=== PATIENT | male | born 1935 | race Caucasian/White ===

== ENCOUNTER 2019-01-16 20:46 | Emergency (ER) | payer OTHER ==
[~2019-01-16] VITALS: Ht 157.5 cm; Wt 56.1 kg
[2019-01-16 22:21] VITALS: Ht 157.5 cm; Wt 56.1 kg
--- NOTE | 2019-01-17 00:23 | ERD ---
ER Documentation Chief Complaint Chief Complaint RIGHT EYE REDNESS, LOWER EYELID DROOP X 6 MOS. 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 The patient denies blurred vision, no headache, no ocular discharge. ROS All systems reviewed and are negative except as per history of present illness. Medications Home Meds Active Scripts Acetaminophen* (Tylenol*) 325 Mg Tablet, 2 TAB PO Q6 PRN for PAIN AND OR ELEVATED TEMP, #20 TAB Prov:MELISSA WASHBURN MD 01/17/19 Allergies Allergies: Coded Allergies: No Known Allergy (Unverified , 01/16/19) PMhx/Soc Medical and Surgical Hx: pt denies Surgical Hx Hx Neurological Disorder: No Hx Respiratory Disorders: No Hx Cardiac Disorders: Yes (HTN ) Hx Psychiatric Problems: No Hx Miscellaneous Medical Probl: No Hx Alcohol Use: No Hx Substance Use: No Hx Tobacco Use: No Physical Exam Vitals Vital Signs Date Temp Pulse Resp B/P (MAP) Pulse Ox O2 O2 Flow FiO2 Time Delivery Rate 01/17/19 98.8 87 19 138/61 97 Room Air 01:10 (86) 01/16/19 98.1 83 18 152/81 95 22:21 (104) Physical Exam Const: No acute distress Head: Atraumatic Eyes: Right eye with everted eyelid with thickening of the lower conjunctiva. ENT: Normal External Ears, Nose and Mouth. Neck: Full range of motion. No meningismus. Resp: Clear to auscultation bilaterally Cardio: Regular rate and rhythm, no murmurs Abd: Soft, non tender, non distended. Normal bowel sounds Skin: No petechiae or rashes Back: No midline or flank tenderness Ext: No cyanosis, or edema Neur: Awake and alert Psych: Normal Mood and Affect Procedures/MDM Differential diagnosis include but not limited to: infection bacte rial/viral/fungal, iritis, scleritis, corneal abrasion, allergies, foreign body, glaucoma. Physical examination and clinical presentation consistent most likely with skin neoplasm of the right lower eyelid. During the ED course the patient remained stable, no new complaints. Clinical impression discussed with patient who agrees with management. The patient is stable to be treated outpatient and will be discharged home. The patient was instructed to follow up with the primary care provider in the next 48h. If symptoms persist, worsen or new symptoms develop, then patient should return to the ED immediately. Disclaimer: Inadvertent spelling and grammatical errors are likely due to EHR/dictation software use and do not reflect on the overall quality of patient care. Also, please note that the electronic time recorded on this note does not necessarily reflect the actual time of the patient encounter. Departure Diagnosis: Primary Impression: Neoplasm of uncertain behavior of skin of eyelid Condition: Stable Additional Instructions: Thank you very much for allowing us to participate in your care. Your health and safety is our top priority at [facility]. The evaluation in the emergency department has been done to rule out an acute emergency. Chronic, [id number] conditions may have not been evaluated; therefore, you need to follow up with a primary care provider in the next 48h. If symptoms persist, worsen or new symptoms develop, then patient should return to the ED immediately. Call your primary care doctor TOMORROW for an appointment during the next 2-4 days and bring all the information provided. Have prescriptions filled and follow precisely the directions on the label. If the symptoms get worse and your provider is unavailable, return to the Em ergency Department immediately. MELISSA WASHBURN MD Jan 17, 2019 00:23
[2019-01-17] MEDS ORDERED: ACET325T33 PO (00:24)
[2019-01-17 01:10] VITALS: BP 138/61; PULSE 87; RESP 19
== END 2019-01-17 01:12 | disposition home or self-care (01) ==
LOC: FTE 20:46
DX: D48.7 Neoplasm of uncertain behavior of other specified sites (principal); I10 Essential (primary) hypertension
CPT/HCPCS: 99282

== ENCOUNTER 2019-01-21 09:27 | Emergency (ER) | payer OTHER ==
[~2019-01-21] VITALS: Ht 149.9 cm; Wt 54.0 kg
[~2019-01-21 09:27] MED LIST: ACET325T33 PO
[2019-01-21 09:33] VITALS: Ht 149.9 cm; Wt 54.0 kg
[2019-01-21] MEDS ORDERED: LISI40TA3 PO (12:07)
[2019-01-21] MEDS ORDERED: HYDR25TA6 PO (12:07)
[2019-01-21 12:27] VITALS: BP 116/77; PULSE 70; RESP 17
--- NOTE | 2019-01-21 12:28 | ERD ---
ER Documentation Chief Complaint Chief Complaint LLQ ABD PAIN W/ VAGUE ONSET HPI This is an 83-year-old male who presents for evaluation of left lower quadrant pain, which is intermittent. Symptoms are somewhat associated with food, and radiate to the upper quadrant. He has not had a fever. No nausea or vomiting, no chest pain or shortness of breath. Additionally his daughter is at the bedside, and requested a CT brain could be performed, as the patient saw an closer on and was told that he could have a brain tumor and to get an outpatient CT or MRI. The patient has not had any neurologic deficits, no confusion, no slurred speech, no syncope. ROS All systems reviewed and are negative except as per history of present illness. Medications Home Meds Reported Medications Lisinopril* (Lisinopril*) 40 Mg Tablet, 40 MG PO DAILY, #30 TAB 01/21/19 Hydrochlorothiazide* (Hydrochlorothiazide*) 25 Mg Tab, 25 MG PO DAILY, #30 TAB 01/21/19 Discontinued Scripts Acetaminophen* (Tylenol*) 325 Mg Tablet, 2 TAB PO Q6 PRN for PAIN AND OR ELEVATED TEMP, #20 TAB Prov:MELISSA WASHBURN MD 01/17/19 Allergies Allergies: Coded Allergies: No Known Allergy (Unverified , 01/21/19) PMhx/Soc History of Surgery: Yes (PROSTATE,HERNIA) Anesthesia Reaction: No Hx Neurological Disorder: No Hx Respiratory Disorders: No Hx Cardiac Disorders: Yes (HTN ) Hx Psychiatric Problems: No Hx Miscellaneous Medical Probl: No Hx Alcohol Use: No Hx Substance Use: No Hx Tobacco Use: No Smoking Status: Never smoker Physical Exam Vitals Vital Signs Date Temp Pulse Resp B/P (MAP) Pulse Ox O2 O2 Flow FiO2 Time Delivery Rate 01/21/19 98.6 95 16 129/77 97 09:33 (94) Physical Exam Const: Pleasant, well-developed well-nourished, nontoxic appearing, smiling Head: Atraumatic Eyes: Normal Conjunctiva ENT: Normal External Ears, Nose and Mouth. Neck: Full range of motion. No meningismus. Resp: Clear to auscultation bilaterally Cardio: Regular rate and rhythm, no murmurs Abd: Soft, non tender, non distended, no rebound or guarding. Normal bowel sounds Skin: No petechiae or rashes Back: No midline or flank tenderness Ext: No cyanosis, or edema Neur: Awake and alert. Strength 5 out of 5 in all extremities, no cerebellar ataxia Psych: Normal Mood and Affect Result Diagram: 01/21/19 1013 01/21/19 1013 Results 24 hrs Laboratory Tests Test 01/21/19 10:13 White Blood Count 4.6 10^3/ul Red Blood Count 4.74 10^6/ul Hemoglobin 14.2 g/dl Hematocrit 42.8 % Mean Corpuscular Volume 90.3 fl Mean Corpuscular Hemoglobin 30.0 pg Mean Corpuscular Hemoglobin Concent 33.2 g/dl Red Cell Distribution Width 13.3 % Platelet Count 235 10^3/UL Mean Platelet Volume 8.9 fl Immature Granulocytes % 0.200 % Neutrophils % 66.5 % Lymphocytes % 20.7 % Monocytes % 9.8 % Eosinophils % 1.7 % Basophils % 1.1 % Nucleated Red Blood Cells % 0.0 /100WBC Immature Granulocytes # 0.010 10^3/ul Neutrophils # 3.1 10^3/ul Lymphocytes # 1.0 10^3/ul Monocytes # 0.5 10^3/ul Eosinophils # 0.1 10^3/ul Basophils # 0.1 10^3/ul Nucleated Red Blood Cells # 0.0 10^3/ul Urine Color YELLOW Urine Clarity CLEAR Urine pH 6.0 Urine Specific Ider 1.012 Urine Ketones NEGATIVE mg/dL Urine Nitrite NEGATIVE mg/dL Urine Bilirubin NEGATIVE mg/dL Urine Urobilinogen NEGATIVE mg/dL Urine Leukocyte Esterase NEGATIVE Rossana/ul Urine Hemoglobin NEGATIVE mg/dL Urine Glucose NEGATIVE mg/dL Urine Total Protein NEGATIVE mg/dl Sodium Level 141 mmol/L Potassium Level 3.8 mmol/L Chloride Level 102 mmol/L Carbon Dioxide Level 32 mmol/L Anion Gap 7 Blood Urea Nitrogen 27 mg/dl Creatinine 1.25 mg/dl Est Glomerular Filtrat Rate mL/min mL/min Glucose Level 124 mg/dl Calcium Level 9.1 mg/dl Total Bilirubin 0.5 mg/dl Direct Bilirubin 0.00 mg/dl Indirect Bilirubin 0.5 mg/dl Aspartate Amino Transf (AST/SGOT) 33 IU/L Alanine Aminotransferase (ALT/SGPT) 19 IU/L Alkaline Phosphatase 85 IU/L Troponin I < 0.012 ng/ml Total Protein 7.1 g/dl Albumin 3.9 g/dl Globulin 3.20 g/dl Albumin/Globulin Ratio 1.21 Lipase 159 U/L Procedures/MDM This is a very pleasant 83-year-old male who presents for evaluation of abdominal pain. On exam he had no peritoneal signs, no fever no infectious symp toms, no evidence of leukocytosis, his CT abdomen pelvis showed no acute findings. He had no worsening of symptoms in the ED, additionally a CT brain showed no acute findings. I discussed findings with the patient and his daughter, the patient felt comfortable with discharge plan of care, at discharge he was in no distress. He has appointment with ophthalmology tomorrow. EKG: Rate/Rhythm: Normal Sinus Rhythm QRS, ST, T-waves: No changes consistent w/ acute ischemia Impression: No evidence of ischemia or arrhythmia Departure Diagnosis: Primary Impression: Abdominal pain Abdominal location: unspecified location Qualified Codes: R10.9 - Unspecified abdominal pain Condition: Stable Patient Instructions: Abdominal Pain Additional Instructions: Call your primary care doctor TOMORROW for an appointment during the next 2-3 days.See the doctor sooner or return here if your condition worsens before your appointment time. CHILO ZABALA MD Jan 21, 2019 12:28
== END 2019-01-21 12:33 | disposition home or self-care (01) ==
LOC: E/R 09:27
DX: R10.32 Left lower quadrant pain (principal); I10 Essential (primary) hypertension; R40.2142 Coma scale, eyes open, spontaneous, at arrival to emergency department; R40.2362 Coma scale, best motor response, obeys commands, at arrival to emergency department; R40.2252 Coma scale, best verbal response, oriented, at arrival to emergency department; R51 Headache
CPT/HCPCS: 36415; 70450; 71045; 74176; 80053; 81003; 83690; 84484; 85025; 93005; Z7502